=== PATIENT | male | born 1980 | race Caucasian/White ===

== ENCOUNTER 2024-08-11 14:13 | Outpatient (AMB) | payer OTHER, SELFPAY ==
--- NOTE | 2024-08-11 14:13 | MHC.PC.OV ---
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[employer] Furnace Required: No Accompanied by: Self / Same As Patient Allergies No Known Allergies Allergy (Verified 08/11/24 14:34) Medication List - Last Reconciled 08/11/24 by Elizabet Núñez PA-C No Known Home Meds Tobacco use date assessed: 08/11/24 Dental Screening Dental Screen Date: 08/11/24 Did you have a dental visit in the last 12 months?: Yes Did you have a dental problem in the last 6 months where you did not have access to dental care?: No Was dental information given to patient?: Patient has dentist HPI Establish Care HPI Details The patient is a 44-year-old male presenting to establish a new primary care provider along with right foot pain. The foot pain started after sustaining a cut on May 30, which was treated with glue in the ER. By May 31, the patient experienced significant discomfort and sought urgent care by June 04. The urgent care team conducted an x-ray which showed no fractures, but inflammation was noted. The discomfort has decreased but still persists when taking steps. Dietary factors potentially exacerbating gout were reported, including consumption of rich foods over the weekend. During the visit, a basic wellness evaluation was conducted. The patient denies a significant personal or family history of gout, diabetes, hypertension, or cancer. He reports social alcohol consumption and has not used tobacco or drugs. The patient does not regularly take medications except for occasional Tylenol. 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 - Housing: Lives alone in a house. - Family Status: Single, no children. - Substance Use: Denies tobacco use; alcohol consumption is approximately 10 drinks per month; denies illicit drug use. - Nutrition: Reports occasional consumption of rich foods. - Regular Health Exams: Dental exams occur at least annually; eye exams are less frequent, with plans to schedule in near future. 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 1. Little interest or pleasure in doing things: not at all 2. Feeling down, depressed, or hopeless: not at all 3. Trouble falling or staying asleep, or sleeping too much: not at all 4. Feeling tired or having little energy: not at all 5. Poor appetite or overeating: not at all 6. Feeling bad about yourself - or that you are a failure or have let yourself or your family down: not at all 7. Trouble concentrating on things, such as reading the newspaper or watching television: not at all 8. Moving or speaking so slowly that other people could have noticed. Or the opposite - being so fidgety or restless that you have been moving around a lot more than usual: not at all 9. Thoughts that you would be better off or of hurting yourself in some way: not at all Total score: 0 Depression Screening Interpretation: Negative Depression Screening Done: Yes 18034 - PHQ-9 Billing: Yes Source: Developed by Drs. Inocente Gale, Glenis Kelly, Cole Bearden and colleagues, with an educational tj from [employer]. Thrive Questionnaire Date Thrive assessed: 08/11/24 I am a: Patient What is your living situation today?: I have a steady place to live Within the past 12 months, did the food you bought not last and you didn't have the money to get more?: Never true Within the past 12 months, did you worry whether your food would run out before you got money to buy more?: Never true Do you have trouble paying for medicines?: No Do you have trouble getting transportation to medical appointments?: No Do you have trouble paying your heating and electricity bill?: No Do you have trouble taking care of your child, family member or friend?: No Do you have trouble with day-to-day activities such as bathing, preparing meals, shopping, managing finances, etc.?: No Are you currently unemployed and looking for a job?: No Are you interested in more education?: No Please select the resources that you would like help with: None THRIVE Score: 0 AUDIT C Alcohol Use Questionnaire (AUDIT-C) 1. How often do you have a drink containing alcohol?: 2-4 times a month 2. How many drinks containing alcohol do you have on a typical day when you are drinking?: 1 or 2 3. How often do you have six or more drinks on one occasion?: Never Total Score: 2 Score Reviewed/Action Taken: No JEWEL-7 AMB Questionnaire JEWEL-7 Date JEWEL - 7 assessed: 08/11/24 Feeling nervous, anxious, or on edge: 0 = Not at all Not being able to stop or control worryin = Not at all Worrying too much about different things: 0 = Not at all Trouble relaxin = Not at all Being so restless that it is hard to sit still: 0 = Not at all Becoming easily annoyed or irritable: 0 = Not at all Feeling afraid as if something awful might happen: 0 = Not at all Total JEWEL-7 score (0-4 normal; 5-9 mild; 10-14 moderate; 15-21 severe): 0 Source: Developed by Drs. Inocente Gale, Glenis Kelly, Cole Bearden and colleagues, with an educational tj from [employer]. JEWEL-7 Assessment Billing JEWEL-7 Assessment Tool: JEWEL-7 Assessment 29589 Review of Systems Const Details: - General: Denies fevers or chills. - Musculoskeletal: Reports right foot pain with reduced swelling. - Gastrointestinal: Denies significant symptoms. - Respiratory: Denies respiratory symptoms. - Endocrine: No known thyroid dysfunction. - Neurological: Denies headaches or neurological symptoms. Physical exam (Primary Care) Vital Signs: Last Vital Signs Temp 97.7 F 08/11/24 14:18 Pulse 82 08/11/24 14:18 Resp 14 08/11/24 14:18 BP 140/70 H 08/11/24 14:18 Pulse Ox 97 08/11/24 14:18 Oxygen Delivery Method Room Air 08/11/24 14:18 Care Plan Goal for BP management: <140/90 at Goal BMI result Body Mass Index 34.1 BMI Assessment/Plan discussion: High BMI High, discussed plan: lifestyle, weight reduction, dietary, physical activity and alcohol moderation Tobacco/Smoking Status: Tobacco use Status Tobacco use date assessed 08/11/24 08/11/24 14:15 Patient Tobacco Use Status Never used Tobacco 08/11/24 14:23 PHQ-9: PHQ-9 Score PHQ-9: Total score 0 08/11/24 14:34 Depression Screening Interpretation: Negative Thrive Assessment: Date of Thrive Assessment Date Thrive assessed 08/11/24 08/11/24 14:15 Const Other: Appearance: Alert. Oriented X3. No acute distress. Head: Normal external exam. Normocephalic. Atraumatic. Eyes: Pupils are equal, round, and reactive to light. Extraocular movements intact. Conjunctiva and sclera normal. Eyelids normal. Ears: External auditory canal normal. Tympanic membranes normal. Throat: Pharynx normal. Uvula midline. Moist mucous membranes. Neck: Normal inspection. Neck supple. Full range of motion. No adenopathy. Thyroid Normal. No meningeal signs. No neck mass noted. Cardiovascular: Normal heart rate and rhythm. Heart sound normal. No murmurs noted. Pulses normal throughout. Respiratory: No respiratory distress. Painless inspiration. Breath sounds normal. No wheezes/rales/rhonchi noted. Chest nontender. No accessory muscle usage noted or decreased air movement noted. Abdomen: Soft and nontender. Bowel sounds normal in all 4 quadrants. No distention noted. No organomegaly noted. No visible injury noted. Back: No costovertebral angle tenderness. Full range of motion noted. Skin: Skin warm and dry. Normal skin color. Normal skin turgor. No rashes/lesions/lacerations noted. Extremities: Right foot shows redness and discoloration with a bruise. There is a history of pain and swelling, but currently, there is a lot less swelling than before. No fractures noted on x-ray. Signs of inflammation present. Concerned for gout. Not consistent with cellulitis. Otherwise all other extremities exhibit normal range of motion nontender. There is no lower extremity edema or calf tenderness noted. Neuro: Oriented X 3. No motor deficit. No sensory deficit. Reflexes normal. Results AMB Hemoglobin A1c AMB Hemoglobin A1c 5.1 % Last Edit by TANJA Cintron on 08/11/24 15:01 Results Reviewed Results Reviewed: - Tests: X-ray of the right foot from urgent care showed no fractures. - Labs: Elevated uric acid level pending. Coding Level of Care Code New Pt Level 4 (31821) Complex EM visit Add On G2211 Diagnoses Establishing care with new doctor, encounter for Z76.89 Class 1 obesity with body mass index (BMI) of 34.0 to 34.9 in adult E66.811; Z68.34 Foot swelling M79.89 Colon cancer screening Z12.11 Additional Codes PHQ-9 - 40118 - PHQ-9 Billing: Yes ([id number]) JEWEL-7 Assessment Billing - JEWEL-7 Assessment Tool: JEWEL-7 Assessment 12535 ([id number]) Assessment & Plan Assessment & Plan (1) Establishing care with new doctor, encounter for: Code(s): Z76.89 - Persons encountering health services in other specified circumstances Category: Medical (2) Class 1 obesity with body mass index (BMI) of 34.0 to 34.9 in adult: Code(s): E66.811 - Obesity, class 1; Z68.34 - Body mass index [BMI] 34.0-34.9, adult Category: Medical Plan: Patient to improve diet and exercise regimen. Condition is chronic and stable continue to monitor. (3) Foot swelling: Code(s): M79.89 - Other specified soft tissue disorders Category: Medical Plan: Foot pain is likely associated with inflammation. Managed initially with prednisone to reduce symptoms. Monitoring and follow-up are advised to evaluate progress. (4) Colon cancer screening: Code(s): Z12.11 - Encounter for screening for malignant neoplasm of colon Category: Medical Plan: Will refer to GI for colon cancer screening. Patient denies any GI related complaints or family history of colon cancer or any other related cancers that he is aware of. Plan Plan Patient was informed and verbally consented to the use of an ambient scribe for clinic note documentation during this visit. 1. Foot Pain Foot pain is likely associated with inflammation. Managed initially with prednisone to reduce symptoms. Monitoring and follow-up are advised to evaluate progress. 2. Hyperuricemia Suspected Potential Gout Uric acid levels suggest a possible gout flare. A test has been ordered to confirm. Patient counseling focused on dietary modifications and monitoring for symptom changes. I discussed with the patient the possible diagnosis of gout given the acute foot pain, inflammation, and dietary history. The treatment options include initiating prednisone to manage inflammation immediately while awaiting uric acid test results. The potential risk of exacerbating diabetes was addressed, but current labs do not indicate diabetes. The importance of following dietary guidelines and avoiding high-purine foods, alcohol, and sugar for long-term management was emphasized. The possible need for rheumatology consultation was considered if gout diagnosis is confirmed. I also instructed the patient to watch for signs of worsening symptoms and report back any concerning developments. Follow-up planning includes returning in six months for re-evaluation unless laboratory results suggest earlier review. The patient was informed about the process for colonoscopy scheduling following the referral to Gastroenterology in line with preventative care for age-appropriate cancer screenings. Orders: Orders C Reactive Protein Today Z00.00 - Encounter for general adult medical examination without abnormal findings PSA,Total (Free>4and<10) Today Z00.00 - Encounter for general adult medical examination without abnormal findings TSH reflex Free T4 Today Z00.00 - Encounter for general adult medical examination without abnormal findings Lipid Panel Today Z00.00 - Encounter for general adult medical examination without abnormal findings Liver Panel Today Z00.00 - Encounter for general adult medical examination without abnormal findings AMB Hemoglobin A1c Today Z13.9 - Encounter for screening, unspecified Complete Blood Count Auto Diff Today Z00.00 - Encounter for general adult medical examination without abnormal findings Comprehensive [place]. Panel Fast Today Z00.00 - Encounter for general adult medical examination without abnormal findings Vitamin B12 and Folate Today Z00.00 - Encounter for general adult medical examination without abnormal findings Vitamin D 25-OH Total Today Z00.00 - Encounter for general adult medical examination without abnormal findings Magnesium Today Z00.00 - Encounter for general adult medical examination without abnormal findings Uric Acid Today M79.89 - Other specified soft tissue disorders, Z76.89 - Persons encountering health services in other specified circumstances Referrals Gastroenterology Referral Z12.11 - Encounter for screening for malignant neoplasm of colon Medications: New prednisone 40 mg (2 x 20 mg) PO DAILY 5 days 10 tabs 0RF Patient Instructions: - Monitor foot for increased redness or swelling and notify immediately if it worsens. - Start prescribed prednisone for foot pain if necessary. - Avoid alcohol and rich foods. - Get blood work done, including fasting samples if advised. - Attend the colonoscopy appointment once contacted by Gastroenterology. - Follow up in six months for routine wellness check-up. - Return sooner if new symptoms appear or conditions worsen.
[2024-08-11 14:18] VITALS: BP 128/78; PULSE 82; RESP 14; TEMP 36.5; O2SAT 97; BMI 34.1
== END 2024-08-11 15:01 | disposition home or self-care (01) ==
LOC: HO.HMCSH 14:13
PROVIDERS: PCP Internal Medicine; Visit Provider Physician Assistant Medical
DX: Z76.89 Persons encountering health services in other specified circumstances (principal); E66.811 Obesity, class 1; Z68.34 Body mass index [BMI] 34.0-34.9, adult; M79.89 Other specified soft tissue disorders; Z12.11 Encounter for screening for malignant neoplasm of colon; Z13.9 Encounter for screening, unspecified

== ENCOUNTER → 2024-08-11 14:13 | Outpatient (BNVA) | payer OTHER, SELFPAY | PROVIDERS: PCP Internal Medicine; Visit Provider Physician Assistant Medical | DX: E66.811 Obesity, class 1 (principal); M79.89 Other specified soft tissue disorders; M79.673 Pain in unspecified foot; Z68.34 Body mass index [BMI] 34.0-34.9, adult; Z76.89 Persons encountering health services in other specified circumstances | CPT/HCPCS: 83036; 96127 ==

== ENCOUNTER 2024-08-14 10:10 | Outpatient (REF) | payer OTHER, SELFPAY ==
[2024-08-14 10:20] LABS: MANUAL DIFF FLAG NO
[2024-08-14 10:45] LABS: Basophils Percent Auto 0.2 % (0-2); Eosinophils Percent Auto 0.1 % (0-4); Hematocrit 47.2 % (42.0-52.0); Hemoglobin 16.9 g/dl (14.0-18.0); Imm Gran Abs Auto 0.05 X10*3/uL (0.00-0.03); Imm Gran Pct Auto 0.4 % (0.0-0.4); Lymphocytes Absolute Auto 1.9 X10*3/uL (1.2-4.9); Lymphocytes Percent Auto 14.2 % (20-40); Mean Corpuscular HGB Conc 35.8 g/dl (31.0-36.0); Mean Corpuscular Hemoglobin 32.3 pg (27.0-33.0); Mean Corpuscular Volume 90.1 fL (80.0-98.0); Mean Platelet Volume 10.8 fL (9.4-12.4); Monocytes Absolute Auto 0.9 X10*3/uL (0.1-1.2); Monocytes Percent Auto 6.3 % (2-11); Neutrophils Absolute Auto 10.6 x10*3/uL (2.0-8.3); Neutrophils Percent Auto 78.8 % (45-73); Platelet Count 357 X10*3/uL (160-400); Red Blood Count 5.24 X10*6/uL (4.60-5.80); Red Cell Distribution Width 12.1 % (11.0-16.0); White Blood Count 13.4 X10*3/uL (4.8-10.8)
[2024-08-14 11:16] LABS: Albumin Level 4.6 g/dL (3.5-5.0); Alkaline Phosphatase 73 U/L (39-117); Anion Gap 11 (12-20); Aspartate Amino Transferase 22 U/L (5-37); Bilirubin Direct 0.2 mg/dL (0.0-0.5); Bilirubin Total 0.6 mg/dL (0.0-1.0); Blood Urea Nitrogen 15 mg/dL (9-16); C Reactive Protein 0.68 mg/dL (< or = 0.50); Calcium 9.5 mg/dL (8.4-10.2); Carbon Dioxide 25 mmol/L (22-29); Chloride 110 mmol/L (96-108); Cholesterol 256 mg/dL (<200); Estimated Glomerular Filt Rate > 60; Glucose Fasting 113 mg/dL (60-99); HDL Cholesterol 48 mg/dL (>40); LDL Cholesterol Calculated 187 mg/dL (<100); Magnesium 2.2 mg/dL (1.6-2.6); Sodium 142 mmol/L (135-145); Total Protein 7.5 g/dL (6.5-8.0); Triglycerides 105 mg/dL (<150); Uric Acid 6.9 mg/dL (3.4-7.0)
[2024-08-14 11:20] LABS: Alanine Aminotransferase 39 U/L (0-40)
[2024-08-14 11:29] LABS: PSA,Total (Free>4and<10) 0.37 ng/mL (0.00-4.00)
[2024-08-14 11:33] LABS: TSH reflex Free T4 1.42 uIU/mL (0.32-4.0); Vitamin D 25-OH Total 18.8 ng/mL (>30)
[2024-08-14 11:44] LABS: Folate 8.8 ng/mL (> or = 4.0); Vitamin B12 528 pg/mL (200-900)
== END 2024-08-14 10:11 | disposition home or self-care (01) ==
LOC: HO.LAB 10:10
PROVIDERS: PCP Physician Assistant Medical; Visit Provider Physician Assistant Medical
DX: Z00.00 Encounter for general adult medical examination without abnormal findings (principal); Z12.5 Encounter for screening for malignant neoplasm of prostate; Z13.6 Encounter for screening for cardiovascular disorders; M79.89 Other specified soft tissue disorders; Z76.89 Persons encountering health services in other specified circumstances
CPT/HCPCS: 36415; 80053; 80061; 80076; 82248; 82306; 82607; 82746; 83735; 84153; 84443; 84550; 85025; 86140

== ENCOUNTER 2024-08-24 13:53 | Outpatient (AMB) | payer OTHER, SELFPAY ==
[2024-08-24 13:58] VITALS: BP 126/70; PULSE 79; O2SAT 97; BMI 32.4
--- NOTE | 2024-08-24 13:58 | A.OFFVIS_ITS ---
Vital Signs 08/24/24 13:58 Height 5 ft 10.47 in Weight 229 lb 0.964 oz BMI 32.4 BP 126/70 Blood Pressure Location Lt brachial Position Sitting Pulse 79 Pulse Source Pulse Oximeter Pulse Oximetry (%) 97 Oxygen Delivery Method Room Air Intake Visit Reasons: Gout/ per relottie early appt Intake Note: Patient is a new patient internally referred by GERALDO Rudolph for gout. So ent states he has had right foot pain since the beginning of August, patient not taking anything now. Allergies No Known Allergies Allergy (Verified 08/24/24 14:00) Medication List - Last Reconciled 08/24/24 by Edwige Newby MD cholecalciferol (vitamin D3) 50 mcg PO DAILY rosuvastatin (Crestor) 10 mg PO DAILY HPI Comments Details: Patient is a 44 y.o. male with HLD presents today for evaluation of suspected gout. Patient noted sudden onset of right foot pain 07/31/24. No antecedent penetrating or blunt trauma. The pain started at the lateral aspect of the midfoot. Denies 1st MTP involvement. Followed up at [facility] urgent care the following day since the pain persisted. XRs were normal and no medication was offered. The pain persisted at home, which patient took Tylenol and Ibuprofen. This would help a bit but the pain would persist. Followed up with primary who suspected gout and started patient on prednisone 40mg x 5 days. He is not sure if the prednisone helped because the pain came back but he thinks it did. Risk Factors for Gout Obesity Denies: HTN, Family history of gout, CKD, EtOH use and use of medications: low- dose ASA, diuretics, cyclosporine [facility] Medical History (Updated 08/24/24 @ 14:44 by Edwige Newby MD) Hypercholesteremia Hyperlipidemia LDL goal <100 Class 1 obesity with body mass index (BMI) of 34.0 to 34.9 in adult Colon cancer screening Establishing care with new doctor, encounter for Foot swelling Family History Father Eye problem Mother Eye problem Social History Housing: House Alcohol intake: current Alcohol intake frequency: a few times a month Patient Tobacco Use Status: Never used Tobacco service: No Current occupational status: employed 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 Cognitive needs: No Hearing needs: No Vision needs: Yes (rx glasses) Review of Systems Const Details: Review of Systems Constitutional: Denies fever, chills, weight loss ENT: Denies vision changes, eye pain or eye redness, dental caries, dry mouth GI: Denies nausea, vomiting, diarrhea, abdominal pain, change in BM Pulm: Denies SOB, NG, hemoptysis, wheezing Cards: Denies chest pain, palpitations Skin: Denies Raynaud's, rash, nail changes, photosensitivity, REEL REPAIRER: Denies headaches, weakness, paresthesias, recurrent falls MSK: as per HPI All other systems reviewed and are unremarkable except noted above Physical Exam Vital Signs: Last Vital Signs Pulse 79 08/24/24 13:58 BP 126/70 08/24/24 13:58 Pulse Ox 97 08/24/24 13:58 Oxygen Delivery Method Room Air 08/24/24 13:58 BMI result Body Mass Index 32.4 Vital signs reviewed Physical Examination CONSTITUITIONAL Patient alert and cooperative. Well appearing and in no apparent painful distress HEENT Conjunctiva and sclera clear. No lymphadenopathy. MSK Hands * Right Hand: Able to make a fist. No swelling or tenderness to palpation of these joints. No deformities noted. Erythema and fluctuant collection noted to the tip of the ring finger * Left Hand: Able to make a fist. No swelling or tenderness to palpation of these joints. No deformities noted. Wrists * Right Wrist: Full ROM. 70 degrees of wrist flexion, 80 degrees of wrist extension. No swelling or TTP * Left Wrist: Full ROM. 70 degrees of wrist flexion, 80 degrees of wrist extension. No swelling or TTP Elbows * Right Elbow: Full ROM. No swelling or TTP. No TTP of the medial and lateral epicondyles * Left Elbow: Full ROM. No swelling or TTP. No TTP of the medial and lateral epicondyles Shoulders * Right shoulder: Full ROM. No swelling noted. No TTP of the AC joint, subacromial bursa or posterior shoulder * Left shoulder: Full ROM. No swelling noted. No TTP of the AC joint, subacromial bursa or posterior shoulder Knees * Right knee: Full ROM. No swelling noted. No TTP of the knee joint lie or pes anserine bursa * Left knee: Full ROM. No swelling noted. No TTP of the knee joint lie or pes anserine bursa. Ankles * Right ankle: Good ankle dorsiflexion and plantar flexion. No TTP of the MTPs 1st-5th. No TTP of the ankle joint proper. Swelling noted over dorsum of foot. TTP of the base on the 5th MTP. * Left ankle: Good ankle dorsiflexion and plantar flexion. No swelling. No TTP of the ankle joint Feet * Right foot: Negative squeeze test * Left foot: Negative squeeze test Tender points? * No tenderness to palpation of the bilateral trapezius, supraspinatus, anterior costochondral junctions, bilateral suboccipital muscle insertions SKIN No rashes. No tophi Results Reviewed Results Reviewed: Laboratory Tests 08/14/24 10:19 WBC 13.4 H RBC 5.24 Hgb 16.9 Hct 47.2 Plt Count 357 Sodium 142 Potassium 4.0 Chloride 110 H Carbon Dioxide 25 BUN 15 Creatinine 0.83 Uric Acid 6.9 Calcium 9.5 Magnesium 2.2 Total Bilirubin 0.6 Direct Bilirubin 0.2 AST 22 ALT 39 Alkaline Phosphatase 73 C-Reactive Protein 0.68 H Assessment & Plan Assessment & Plan (1) Right foot pain: Code(s): M79.671 - Pain in right foot Plan: #Right foot pain Patient is a 44-year-old male with hyperlipidemia here today for evaluation of right foot pain. It is unusual for gout to not involve the 1st MTP joint. Furthermore his pain seems to be at the base of the 5th MTP. He also did not respond well to a course of prednisone. The natural history of gout is to resolve with in 2 weeks especially the 1st instance. At this time given his atypical presentation and normal uric acid I am not sure he truly has a diagnosis of gout. We will check a CT of his foot to evaluate further. Plan - CT right foot - RTC after results (2) Acute paronychia of finger of right hand: Code(s): L03.011 - Cellulitis of right finger Plan: #Acute paronychia of right ring finger Patient with erythema and fluctuant swelling to his right ring finger. Informed him that it looks infected and he should have it drained. Plan I spent 35 minutes reviewing the record and labs, taking a history, examining the patient, discussing the treatment plan, ordering diagnostic work up and docu menting in the medical record Orders: Orders CT foot RT wo IV con Today M79.671 - Pain in right foot Coding Level of Care Code New Pt Level 3 (23479) Diagnoses Right foot pain M79.671 Acute paronychia of finger of right hand L03.011
== END 2024-08-24 14:36 | disposition home or self-care (01) ==
LOC: HO.RHE 13:53
PROVIDERS: PCP Physician Assistant Medical; Visit Provider Student in an Organized Health Care Education/Training Program
DX: M79.671 Pain in right foot (principal); L03.011 Cellulitis of right finger
CPT/HCPCS: 99203

== ENCOUNTER 2024-10-29 12:23 | Outpatient (AMB) | payer OTHER, SELFPAY ==
--- NOTE | 2024-10-29 12:25 | MHC.OFFVIS ---
Vital Signs 10/29/24 12:26 Height 5 ft 10 in Weight 242 lb BMI 34.7 BP 154/86 H Blood Pressure Location Lt brachial Position Sitting Pulse 84 Pulse Source Pulse Oximeter Pulse Oximetry (%) 96 Oxygen Delivery Method Room Air Intake Visit Reasons: Colonoscopy Screening Intake Note: Patient new consult for Colonoscopy Screening. Patient cc: Pt denies any GI sx or concerns at this time. Pt denies any pertinent FMHx. Extension Service Supervisor Required: No Accompanied by: Self / Same As Patient Allergies No Known Allergies Allergy (Verified 08/24/24 14:00) Medication List - Last Reconciled 10/29/24 by Tanya Jensen CNP cholecalciferol (vitamin D3) 50 mcg PO DAILY flaxseed oil 1,000 mg PO DAILY multivitamin 1 tab PO DAILY rosuvastatin (Crestor) 10 mg PO DAILY HPI HPI Colonoscopy Screening: Details: Patient is a 44-year-old male with PMH of obesity and hyperlipidemia. Referred by PCP for pre colonoscopy screening. This will be his first screening for colorectal cancer. Reports daily stools, sometimes twice per day, with occasional loose stools associated with high caffeine intake. They deny constipation, abdominal pain, nausea, vomiting, or appetite changes. The patient notices occasional streaks of red blood upon wiping but denies seeing blood in the stool. Reports a prior history of hemorrhoids or anal fissures. Heartburn occurs occasionally, typically triggered by specific foods like pepperoni pizza or acidic juices, and was previously managed with [id number] antacids, which are rarely needed now. Mild regurgitation was noted rarely, and trouble swallowing occurs occasionally when food is inadequately chewed, but not with routine eating or drinking. Weight gain (+13 lbs) since August 2024 was discussed; the patient attributes this to changes in diet and recent vacation but denies intentional dieting or unexplained weight loss. The patient?s blood pressure during the visit was elevated, but this was attributed to activity before the appointment, lack of food intake, and first-visit stress. He is aware of previously documented hypercholesterolemia and low vitamin D, which are being treated with Crestor and supplements, respectively. Social hx: -4-6 ETOH drinks/month -denies recreational drug use -non-smoker - family hx as below -denies personal hx of CA -denies significant cardiopulmonary history -tolerated anesthesia in the past without difficulty. 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 Cognitive needs: No Hearing needs: No Vision needs: Yes (rx glasses) Review of Systems Const Reports as per HPI ENT Reports as per HPI Card Reports as per HPI Resp Reports as per HPI GI Reports as per HPI Reports as per HPI Physical Exam Const General: healthy appearing, no acute distress and well developed Nutritional Appearance: average body habitus Orientation/consciousness: patient oriented x3 HEENT Head: Yes normal to inspection, Yes normocephalic and Yes atraumatic Face and sinus: Yes normal facial exam Eyes General: appearance normal, both eyes and all related structures Neck Neck: Yes normal visual inspection Resp Effort & Inspection: normal respiratory effort, able to speak in complete sentences, no tracheal deviation and symmetric chest movement Cardio Jugular venous distension: no JVD Neuro General: patient oriented x3 Gait exam (Neuro): Normal gait present Psych Appearance: grossly normal Mental Status: mental status grossly normal Speech and movement: Normal speech and movement present Affect: normal affect Attitude: cooperative Thought process: Normal thought process present Thought content: Normal thought content present Insight: Good insight present (Psych) Judgement: Good judgement present (Psych) Assessment & Plan Assessment & Plan (1) Colon cancer screening: Code(s): Z12.11 - Encounter for screening for malignant neoplasm of colon Category: Medical Plan: Age-appropriate screening; referred by PCP; no personal or family history of CRC; mild GI symptoms and weight gain warrant definitive evaluation. Discussed CRC screening options?FIT (annual), Cologuard (q3y if negative), and colonoscopy (gold standard for detection and prevention). Patient educated that colonoscopy allows for direct visualization and polyp removal, providing the most definitive assessment. Patient opted for colonoscopy. Additional Testing: Colonoscopy ordered as primary screening modality. Medications: -prescriptions for laxative tablets and MiraLax sent to pharmacy; instructions for Gatorade purchase and clear liquid diet given. Patient educated on scheduling process, procedure preparation, including avoiding certain foods and ensuring clear liquid intake Advised on necessity for ride post-procedure due to sedation. Follow-Up: Results to be communicated by letter unless in-person follow-up indicated post-procedure. (2) Hemorrhoid: Code(s): K64.9 - Unspecified hemorrhoids Category: Medical Qualifiers: Hemorrhoid type: unspecified Qualified Code(s): K64.9 - Unspecified hemorrhoids Plan: Suspected. Reports occasional red streaks on toilet paper, no visible blood in stool, possible history of hemorrhoids or fissures. Additional Testing: No further workup indicated at this time; to reassess if symptoms worsen or if remi rectal bleeding develops. Lifestyle Recommendations: Maintain adequate hydration, avoid straining, consider increased dietary fiber if symptoms recur. Follow-Up: Instructed to report increased rectal bleeding, pain, or persistent symptoms prior to or after colonoscopy. Plan Follow-up colonoscopy as warranted or sooner if needed Time: I spent a total of 30 minutes on the date of encounter which includes: Preparing to see the patient (reviewed previous documentation, test results and medical history) Performing a medically appropriate exam and/or evaluation Ordering medications, tests, and procedures Documenting clinical information in the health record Medications: New bisacodyl (Dulcolax (bisacodyl)) Take four tablets pre colonoscopy instructions 20 mg (4 x 5 mg) PO ONCE 4 tabs 0RF 1 day polyethylene glycol 3350 (Miralax) per colonoscopy prep instructions 238 grams PO ONCE 238 grams 0RF Coding Level of Care Code New Pt New Pt Level 3 (33197) Patient Type New Diagnoses Colon cancer screening Z12.11 Hemorrhoids, unspecified hemorrhoid type K64.9 Hemorrhoid type: unspecified
[2024-10-29 12:26] VITALS: BP 154/86; PULSE 84; O2SAT 96; BMI 34.7
== END 2024-10-29 12:51 | disposition home or self-care (01) ==
LOC: HO.HGI 12:23
PROVIDERS: PCP Physician Assistant Medical; Visit Provider Nurse Practitioner Family
DX: Z01.818 Encounter for other preprocedural examination (principal); Z12.11 Encounter for screening for malignant neoplasm of colon; K64.9 Unspecified hemorrhoids
CPT/HCPCS: 99203

== ENCOUNTER 2024-11-16 16:18 | Outpatient (REF) | payer OTHER, SELFPAY ==
--- NOTE | ~2024-11-16 | CT_ITS ---
EXAMINATION: CT FOOT WITHOUT CONTRAST, RIGHT CLINICAL INFORMATION: M79.671 - Pain in right foot COMPARISON: None available. TECHNIQUE: Axial CT was performed through the right foot without contrast. Coronal and sagittal reformatted images were generated from the original axial data set. ALARA: The examination used one or more of the following radiation dose reduction techniques: Automated exposure control, iterative reconstruction, and/or adjustment of mA and/or KV. DLP: 166 mGY*cm FINDINGS: Lisfranc ligament: Lisfranc ligament appears intact. Soft tissues/Muniz's Neuroma: No atrophy or fatty streaking is noted in the foot musculature. No superficial soft tissue edema is noted. There is mildly prominent soft tissue in the second webspace. Syndesmotic ligaments are intact. Talofibular and calcaneofibular ligaments appear intact. Peroneal, medial, and anterior ankle tendons appear intact. Metatarsophalangeal (MTP) joint and sesamoids of the great toe: Lateral plate complex is grossly intact. No degenerative changes are evident. Lesser MTP joints & Plantar plates: Plantar plates are grossly intact. No degenerative changes are evident. Bones: Three small rounded areas of high attenuation are present in the midfoot, navicular and calcaneal, consistent with benign bone islands. No other bony abnormalities are seen. 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 Electronically signed by: Jacques Torres MD 11/16/2024 05:24 PM EDT
--- OUTSIDE RECORDS SUMMARY | 2024-11-16 18:12 | XMS_ITS | Clinical Summary ---
Author Organization [facility] Address [address] [place] [address] Phone Care Team Providers Care Director Global Medical Affairs Name Role Phone Elmo Huggins MD Primary Care Provid er Allergies No known active allergies Medications No known medications Active Problems No known active problems Social History Tobacco Use Types Packs/Day Years Used Date Smoking Tobacco: Never Assessed Education Answer Date Recorded Are you interested in more education? Not on rivas e 07/31/2024 Are you concerned about learning? Not on file 07/31/2024 No 07/31/2024 No 07/31/2024 Digital Access Answer Date Recorded No 07/31/2024 No 07/31/2024 Reliable internet access at home? Not on file 07/31/2024 Device with a working camera? Not on file Intimate Partner Violence Answer Date R ecorded Are you denied basic needs s uch as food, clothing, or medical care? No 07/30/2024 In the past 12 months have y ou been in a relationship with a person who hurts, threatens, or tries to control you? No 07/30/2024 Are you denied basic needs s uch as food, clothing, or medical care? No 07/30/2024 In the past 12 months have y ou been in a relationship with a person who hurts, threatens, or tries to control you? No 07/30/2024 Sex and Gender Information Value Date Recorded Sex Assigned at Male 08/03/2024 12:52 PM EDT Legal Sex Male 5:54 PM EST Gender Identity Genderqueer/Queer 08/03/2024 12: 52 PM EDT Sexual Orientation Pansexual 08/03/2024 12 :52 PM EDT Last Filed Vital Signs Vital Sign Reading Time Taken Comments Blood Pressure 133/86 08/03/2024 1:05 PM EDT Pulse 77 08/03/2024 1:05 PM EDT Temperature 36.5 C (97.7 F) 08/03/2024 1:05 PM EDT Respiratory Rate 16 08/03/2024 1:05 PM EDT Oxygen Saturation 97% 08/03/2024 1:05 PM EDT Inhaled Oxygen Concentration - - Weight 110.2 kg (243 lb) 08/03/2024 1:05 PM EDT Height 177.8 cm (5' 10 ) 08/03/2024 1:05 PM EDT Body Mass Index 34.87 08/03/2024 1:05 PM EDT Plan of Treatment Health Maintenance Due Date Last Done Comments Adult Td,Tdap Booster 1978 LIPID PANEL 1978 DEPRESSION SCREENING 1990 SMOKING Hx and SMOKELESS TOB ACCO SCREENING 1991 HEPATITIS C SCREENING 01/31/1996 HIV ONE-TIME SCREENING (18-6 5 YEARS) 01/31/1996 SCREENING FOR DIABETES 2013 COLOGUARD 2023 COLONOSCOPY 2023 COLORECTAL CANCER SCREENING 2023 FIT TEST 2023 FOBT 2023 SIGMOIDOSCOPY 2023 VIRTUAL COLONOSCOPY 2023 COVID-19 VACCINE ( - 2023-2 5 season) 2023 HEPATITIS A VACCINES Aged Out No long er eligible based on patient's age to complete this topic HIB VACCINES Aged Out No longer eligi ble based on patient's age to complete this topic MENINGOCOCCAL VACCINES (ACWY) Aged Out No longer eligible based on patient's age to complete this topic MENINGOCOCCAL VACCINES (B) Aged Out N o longer eligible based on patient's age to complete this topic PNEUMOCOCCAL VACCINES (0-49 years) Aged Out No longer eligible based on patient's age to complete this topic Medical Devices Not on file Insurance [facility] EPO [facility] POS EPO [facility] POS EPO [facility] [place] [address] [place] [address] POS EPO [facility] EPO Care Teams Director Global Medical Affairs Relationship Specialty Start Date End Date Elmo Huggins MD [address] [place] [id number] PCP - General Internal Medicine 07/31/24 Additional Source Comments The information contained in this document represents components of the legal health record. It is not the complete legal health record.[facility]
== END 2024-11-16 16:19 | disposition home or self-care (01) ==
LOC: HO.CT 16:18
PROVIDERS: PCP Physician Assistant Medical; Visit Provider Student in an Organized Health Care Education/Training Program
DX: M79.671 Pain in right foot (principal)
CPT/HCPCS: 73700

== ENCOUNTER → 2024-11-16 16:21 | Outpatient (BNV) | payer OTHER, SELFPAY | PROVIDERS: PCP Physician Assistant Medical; Visit Provider Radiology Diagnostic Radiology | DX: M79.671 Pain in right foot (principal) | CPT/HCPCS: 73700 ==

== ENCOUNTER 2024-12-10 08:03 | Outpatient (AMB) | payer OTHER, SELFPAY ==
--- NOTE | 2024-12-10 08:08 | A.OFFVIS_ITS ---
Intake Visit Reasons: New Patient - Right Foot Pain/Mortons Neuroma Intake Note: Gabe is a 44 year old male who presents today as a new patient for an evaluation of his Muniz neuroma of the right foot. Patient reports that he has had pain of the lateral and midfoot of the right foot ongoing since the beginni ng of August. This pain onset suddenly with no injury/trauma. Has tried taking Tylenol and Ibuprofen with only temporary relief, he was also placed on a 5 day course of prednisone which he believes was helpful, but once he stopped taking it his pain returned. Uric acid was checked to rule out gout, which was normal. Today he reports that he is having more prominent Left foot pain. He explains that he has previously lsipped and fell on ice about 2 years ago. He assumed that he fractured the foot but never saught out treatment The pain is felt on the lateral aspect of the foot. Denied numbness and tingling. IMPRESSION: Right foot CT Scan Mildly prominent soft tissue is present in the second web space possibly representing a small Muniz's neuroma of uncertain significance. Allergies No Known Allergies Allergy (Verified 12/10/24 08:15) HPI Comments Details: The patient is a 44-year-old male with a PMH as seen below presenting with bilateral foot pain, initially in the right foot and now affecting the left foot. The right foot pain began in August, described as intense with no direct trauma to the foot was reported. The pain was described as internal, between the bones, resembling a severe cramp, without numbness or tingling. He states at this time he experiences 0/10 pain on the right and 3/10 pain on the left. Patient states the pain on the right is located in the dorsal aspect of the foot in between the 4th and 5th metatarsals. The pain on the left foot is located on the plantar lateral aspect of the foot. A CT scan revealed a neuroma in the right foot. The patient has been managing the pain with ibuprofen and acetaminophen, with some relief noted from Tylenol and a tight bandage applied after an x-ray at [facility]. The left foot pain is located in the lateral aspect of the arch, more towards the sole. He denies any other pedal concerns. 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 Plantar fasciitis of left foot Bilateral foot pain Metatarsalgia, right foot Hemorrhoid Hypercholesteremia Hyperlipidemia LDL goal <100 Class 1 obesity with body mass index (BMI) of 34.0 to 34.9 in adult Colon cancer screening Establishing care with new doctor, encounter for Foot swelling Family History Father Eye problem Mother Eye problem Social History Housing: House Alcohol intake: current Alcohol intake frequency: a few times a month Patient Tobacco Use Status: Never used Tobacco service: No Current occupational status: employed 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 Denies numbness or tingling in the toes and feet. All systems reviewed & are unremarkable except as noted in HPI and below Physical Exam Extrem Other: B/L LE Focused Physical Exam: Derm: No open lesions, abrasions, or wounds noted. Skin supple and turgor WNL. No ecchymosis or discoloration noted. No edema noted. No clinical signs of infection noted. No maceration noted. Vasc: DP/PT pulses palpable. CFT < 3 secs. Temperature gradient warm to warm. Pedal hair noted. No varicosities noted. Neuro: Protective sensations grossly intact. MSK: Right - No pain on palpation to the 4th webspace/dorsal or plantar aspects of the foot along the area of the 4th and 5th metatarsals. Negative squeeze test. Negative luis's sign. ROM of the forefoot, hindfoot, and ankle WNL. No crepitus noted. No palpable mass noted. No fluctuance noted. Normal arch height noted. Mild Hammertoes 2-5 noted. Left - Mild pain on palpation to the lateral aspect of the plantar arch. No pain on palpation to the calcaneus plantaraly or posteriorly. Negative windlass mechanism.Mild pain noted with dorsiflexion of the foot/ankle. No pain noted w ith remaining ROM. No crepitus noted. Normal arch height noted. Mild hammertoes 2-5 noted. Results Reviewed Results Reviewed: Podiatry read of CT scan of Right foot(11/16/24): [place] noted to the talus, calcaneus, and navicular. Small Neuroma noted to the 2nd interspace. No acute fractures or dislocations noted. CT scan of Right foot(11/16/24): FINDINGS: Lisfranc ligament: Lisfranc ligament appears intact. Soft tissues/Muniz's Neuroma: No atrophy or fatty streaking is noted in the foot musculature. No superficial soft tissue edema is noted. There is mildly prominent soft tissue in the second webspace. Syndesmotic ligaments are intact. Talofibular and calcaneofibular ligaments appear intact. Peroneal, medial, and anterior ankle tendons appear intact. Metatarsophalangeal (MTP) joint and sesamoids of the great toe: Lateral plate complex is grossly intact. No degenerative changes are evident. Lesser MTP joints & Plantar plates: Plantar plates are grossly intact. No degenerative changes are evident. Bones: Three small rounded areas of high attenuation are present in the midfoot, navicular and calcaneal, consistent with benign bone islands. No other bony abnormalities are seen. 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 I discussed with the patient the diagnosis of metatarsalgia and neuroma in the right foot and plantar fasciitis in the left foot. We reviewed the benefits of using ibuprofen as needed for inflammation/pain and the importance of metatarsal pads for neuroma relief. I emphasized the role of stretching exercises and proper footwear in managing plantar fasciitis. We also talked about the option of [id number] orthotics and the potential need for custom orthotics if symptoms persist. Follow-up was scheduled in three weeks to monitor progress and make necessary adjustments to the treatment plan. - Recommend continued use of ibuprofen for its anti-inflammatory effects to manage neuroma-related pain. - Advise use of metatarsal pads to alleviate pressure on the neuroma and improve comfort. - Encourage stretching exercises and proper footwear to manage plantar fasciitis and prevent recurrence. Provided patient with the instructional form. - Suggest trial of [id number] orthotics if pain persists, with consideration for custom orthotics if necessary. Follow-up in three weeks to assess progress and adjust treatment as needed. 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
== END 2024-12-10 08:37 | disposition home or self-care (01) ==
LOC: HO.HPODS 08:04
PROVIDERS: PCP Physician Assistant Medical; Visit Provider Student in an Organized Health Care Education/Training Program
DX: M77.41 Metatarsalgia, right foot (principal); M79.671 Pain in right foot; M79.672 Pain in left foot; M72.2 Plantar fascial fibromatosis; G57.61 Lesion of plantar nerve, right lower limb
CPT/HCPCS: 99204

== ENCOUNTER 2024-12-30 13:14 | Outpatient (AMB) | payer OTHER, SELFPAY ==
--- NOTE | 2024-12-30 13:22 | MHC.OFFVIS ---
Vital Signs 12/30/24 13:26 Height 5 ft 10 in Weight 242 lb BMI 34.7 Intake Visit Reasons: right foot neuroma and left foot plantar fasciitis Intake Note: Gabe is a 44 year old male who presents to the office today for a 3 week follow up for a right foot neuroma and left foot plantar fasciitis. At last visit pt was informed to use ibuprofen for pain relief and she was advised the use of metatarsal pads to alleviate pressure on the neuroma and improve comfort. Patient states he has not utilized the metatarsal pads and reported only taking ibuprofen once since his last visit. He no longer has pain in his right foot however his left foot plantar fasciitis pain persist occasionally. Allergies No Known Allergies Allergy (Verified 12/30/24 13:27) HPI Comments Details: The patient is a 44-year-old male presenting for a follow up due to left foot plantar fasciitis and right foot neuroma. The pain in the left foot is intermittent since the last visit with a severity reaching up to 4-5/10 at its worst. The patient reports that the pain is not consistently associated with any specific stressors or activities. Patient denies any pain to the right foot at this time. Interventions have included the use of ibuprofen on one occasion and he states he has been doing the stretching exercises intermittently. Patient states he did not use the metatarsal pads.He denies any new injuries. Denies any other pedal concerns. 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 Plantar fasciitis of left foot Bilateral foot pain Metatarsalgia, right foot Hemorrhoid Hypercholesteremia Hyperlipidemia LDL goal <100 Class 1 obesity with body mass index (BMI) of 34.0 to 34.9 in adult Colon cancer screening Establishing care with new doctor, encounter for Foot swelling Family History Father Eye problem Mother Eye problem Social History Housing: House Alcohol intake: current Alcohol intake frequency: a few times a month Patient Tobacco Use Status: Never used Tobacco service: No Current occupational status: employed 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 All systems reviewed & are unremarkable except as noted in HPI and below Physical Exam Vital Signs: BMI result Body Mass Index 34.7 Extrem Other: B/L LE Focused Physical Exam: Derm: No open lesions, abrasions, or wounds noted. Skin supple and turgor WNL. No ecchymosis or discoloration noted. No edema noted. No clinical signs of infection noted. No maceration noted. Vasc: DP/PT pulses palpable. CFT < 3 secs. Temperature gradient warm to warm. Pedal hair noted. No varicosities noted. Neuro: Protective sensations grossly intact. MSK: Right - No pain on palpation to the 4th webspace/dorsal or plantar aspects of the foot along the area of the 4th and 5th metatarsals. No pain to the forefoot. Negative squeeze test. Negative luis's sign. ROM of the forefoot, hindfoot, and ankle WNL. No crepitus noted. No palpable mass noted. No fluctuance noted. Normal arch height noted. Mild Hammertoes 2-5 noted. Left - Mild pain on palpation to the lateral aspect of the plantar arch. No pain on palpation to the calcaneus plantaraly or posteriorly. Negative windlass mechanism. Mild pain noted with dorsiflexion of the foot/ankle. No pain noted with remaining ROM. No crepitus noted. Normal arch height noted. Mild hammertoes 2-5 noted. Results Reviewed Results Reviewed: Podiatry read of CT scan of Right foot(11/16/24): Ossicles noted to the talus, calcaneus, and navicular. Small Neuroma noted to the 2nd interspace. No acute fractures or dislocations noted. CT scan of Right foot(11/16/24): FINDINGS: Lisfranc ligament: Lisfranc ligament appears intact. Soft tissues/Muniz's Neuroma: No atrophy or fatty streaking is noted in the foot musculature. No superficial soft tissue edema is noted. There is mildly prominent soft tissue in the second webspace. Syndesmotic ligaments are intact. Talofibular and calcaneofibular ligaments appear intact. Peroneal, medial, and anterior ankle tendons appear intact. Metatarsophalangeal (MTP) joint and sesamoids of the great toe: Lateral plate complex is grossly intact. No degenerative changes are evident. Lesser MTP joints & Plantar plates: Plantar plates are grossly intact. No degenerative changes are evident. Bones: Three small rounded areas of high attenuation are present in the midfoot, navicular and calcaneal, consistent with benign bone islands. No other bony abnormalities are seen. 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 I discussed with the patient the treatment plan for plantar fasciitis including the use of a night splint and stretching exercises. We also talked about the potential need for physical therapy or injections if symptoms do not improve. The patient was informed about the asymptomatic status of the neuroma and the potential interventions if it becomes symptomatic. - Recommend the use of a night splint to maintain foot position during sleep - provided patient with a night splint. - Advised continuation of stretching exercises to reduce foot pain and prevent recurrence of symptoms. - Recommend continued use of ibuprofen for its anti-inflammatory effects to manage neuroma-related pain. - Monitor symptoms and consider physical therapy or an injection if pain persists or worsens. - Neuroma management is not currently necessary as it is asymptomatic, but metatarsal pads or injections may be considered if symptoms develop. - Advised patient to consider OTC inserts/insoles. RTC in 3 weeks. 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
[2024-12-30 13:26] VITALS: BMI 34.7
== END 2024-12-30 13:33 | disposition home or self-care (01) ==
LOC: HO.HPODS 13:14
PROVIDERS: PCP Physician Assistant Medical; Visit Provider Student in an Organized Health Care Education/Training Program
DX: M77.41 Metatarsalgia, right foot (principal); M79.671 Pain in right foot; M79.672 Pain in left foot; M72.2 Plantar fascial fibromatosis; G57.61 Lesion of plantar nerve, right lower limb
CPT/HCPCS: 99214

== ENCOUNTER 2025-01-19 13:20 | Outpatient (AMB) | payer OTHER, SELFPAY ==
[2025-01-19 13:29] VITALS: BMI 34.7
--- NOTE | 2025-01-19 13:29 | A.OFFVIS_ITS ---
Vital Signs 01/19/25 13:29 Height 5 ft 10 in Weight 242 lb BMI 34.7 Intake Visit Reasons: left foot plantar fasciitis Intake Note: Gabe is a 44 year old male who presents today for a follow up of left foot plantar fasciitis. At his last visit patient was advised to continue stretching exercises to reduce foot pain, as well as to continue the intake of ibuprofen for its anti-inflammatory effects. Patient reports he is doing well, however has pain that comes and goes, with no further concerns at this time. Allergies No Known Allergies Allergy (Verified 12/30/24 13:27) HPI Comments Details: The patient is a 44-year-old male presenting for follow-up of left foot plantar fasciitis and right foot neuroma. The patient states he does not experience any pain to the right foot. The condition to the left foot has been associated with intermittent pain, primarily in the arch of the left foot, which is most noticeable in the mornings and when fatigued. The pain severity has been reported as 1-2/10. The patient has been utilizing a night splint and performing home plantar fascial exercises, which have contributed to the improvement of symptoms. He reports almost no pain currently, attributing this to the effectiveness of the night splint and exercises. There was an episode of calf cramps occurring approximately a week after starting the night splint, but no other significant leg or ankle pain has been reported.He denies any new injuries. Denies any other pedal concerns. 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 Plantar fasciitis of left foot Bilateral foot pain Metatarsalgia, right foot Hemorrhoid Hypercholesteremia Hyperlipidemia LDL goal <100 Class 1 obesity with body mass index (BMI) of 34.0 to 34.9 in adult Colon cancer screening Establishing care with new doctor, encounter for Foot swelling Family History Father Eye problem Mother Eye problem Social History Housing: House Alcohol intake: current Alcohol intake frequency: a few times a month Patient Tobacco Use Status: Never used Tobacco service: No Current occupational status: employed 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 All systems reviewed & are unremarkable except as noted in HPI and below Physical Exam Vital Signs: BMI result Body Mass Index 34.7 Extrem Other: B/L LE Focused Physical Exam: Derm: No open lesions, abrasions, or wounds noted. Skin supple and turgor WNL. No ecchymosis or discoloration noted. No edema noted. No clinical signs of infection noted. No maceration noted. Vasc: DP/PT pulses palpable. CFT < 3 secs. Temperature gradient warm to warm. Pedal hair noted. No varicosities noted. Neuro: Protective sensations grossly intact. MSK: Right - No pain on palpation to the 4th webspace/dorsal or plantar aspects of the foot along the area of the 4th and 5th metatarsals. No pain to the forefoot. Negative squeeze test. Negative luis's sign. ROM of the forefoot, hindfoot, and ankle WNL. No crepitus noted. No palpable mass noted. No fluctuance noted. Normal arch height noted. Mild Hammertoes 2-5 noted. Left - minimal pain on palpation to the lateral aspect of the plantar arch. No pain on palpation to the calcaneus plantaraly or posteriorly. Negative windlass mechanism. Minimal pain noted with dorsiflexion of the foot/ankle. No pain noted with remaining ROM. No crepitus noted. Normal arch height noted. Mild hammertoes 2-5 noted. Results Reviewed Results Reviewed: Podiatry read of CT scan of Right foot(11/16/24): Ossicles noted to the talus, calcaneus, and navicular. Small Neuroma noted to the 2nd interspace. No acute fractures or dislocations noted. CT scan of Right foot(11/16/24): FINDINGS: Lisfranc ligament: Lisfranc ligament appears intact. Soft tissues/Muniz's Neuroma: No atrophy or fatty streaking is noted in the foot musculature. No superficial soft tissue edema is noted. There is mildly prominent soft tissue in the second webspace. Syndesmotic ligaments are intact. Talofibular and calcaneofibular ligaments appear intact. Peroneal, medial, and anterior ankle tendons appear intact. Metatarsophalangeal (MTP) joint and sesamoids of the great toe: Lateral plate complex is grossly intact. No degenerative changes are evident. Lesser MTP joints & Plantar plates: Plantar plates are grossly intact. No degenerative changes are evident. Bones: Three small rounded areas of high attenuation are present in the midfoot, navicular and calcaneal, consistent with benign bone islands. No other bony abnormalities are seen. 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 I discussed with the patient the current management of plantar fasciitis, emphasizing the importance of continuing with the night splint and home plantar fascial exercises. We reviewed the potential for cortisone injections, noting that they are limited to three times a year to prevent soft tissue damage, and would be indicated if pain worsens. I advised the patient to contact us if there is any increase in pain or if additional intervention is needed. - Continue with night splint and home plantar fascial exercises to manage plantar fasciitis. - Recommended patient use metatarsal pads previously provided if pain from right foot neuroma begins. - Monitor for any increase in pain or symptoms, and consider cortisone injection or physical therapy if symptoms worsen. - Recommend continued use of ibuprofen PRN for pain. - Advised patient to consider OTC inserts/insoles. RTC PRN. 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
--- OUTSIDE RECORDS SUMMARY | 2025-01-19 16:05 | XMS_ITS | Clinical Summary ---
Author Organization [facility] Address 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 Name Role Phone Elmo Huggins MD Primary [...] FOBT 2023 SIGMOIDOSCOPY 2023 VIRTUAL COLONOSCOPY 2023 INFLUENZA VACCINE (#1) 2024 COVID-19 VACCINE (1 - 2024-2 6 season) 2024 HEPATITIS A VACCINES Aged Out No long er eligible based on patient's age to complete this topic HIB VACCINES Aged Out No longer eligi ble based on patient's age to complete this topic IPV VACCINES Aged Out No longer eligi ble [...] topic Medical Devices Not on file Insurance [facility] [place] [address] [place] [address] POS EPO [facility] POS [facility] POS EPO [facility] POS EPO Care Teams Electric Train Driver Relationship Specialty Start Date End Date Elmo Huggins MD [address] [place] [id number] PCP - General Internal Medicine 07/31/24 Additional Source Comments The information contained in this document represents components of the legal health record. It is not the complete legal health record.[facility]
== END 2025-01-19 13:47 | disposition home or self-care (01) ==
LOC: HO.HPODS 13:20
PROVIDERS: PCP Physician Assistant Medical; Visit Provider Student in an Organized Health Care Education/Training Program
DX: M77.41 Metatarsalgia, right foot (principal); M79.671 Pain in right foot; M79.672 Pain in left foot; M72.2 Plantar fascial fibromatosis; G57.61 Lesion of plantar nerve, right lower limb
CPT/HCPCS: 99213

== ENCOUNTER 2025-02-16 14:51 | Outpatient (AMB) | payer OTHER, SELFPAY ==
[2025-02-16 14:54] VITALS: BP 128/72; PULSE 68; RESP 14; TEMP 36.4; O2SAT 97; BMI 33.8
--- NOTE | 2025-02-16 14:54 | A.OFFPC_ITS ---
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 He denies any specific concerns and has a normal blood pressure reading. The patient reports a benign, non-painful fatty tissue mass on his arm which has been present for some time. Regarding his previous complaint of foot swelling, a course of prednisone provided some relief. A subsequent visit to a engraver optical frames and a CT scan confirmed a Muniz's neuroma and plantar fasciitis in his left foot. He was shown exercises and given a splint for management, and his foot symptoms are currently intermittent and not present today. Review of blood work from six months ago showed a low vitamin D level, a slightly elevated white blood cell count, and a fasting glucose of 113 mg/dL with a hemoglobin A1c of 5.1%. His kidney function, electrolytes, and liver enzymes were normal. One inflammatory marker, CRP, was slightly elevated at 0.68, and the non-fasting lipid panel results were noted as potentially inaccurate. His PSA and thyroid levels were normal. A Cologuard test was negative, and he has a future colonoscopy pending. The patient is taking vitamin D, flaxseed oil, a multivitamin, and Crestor for high cholesterol. He recently received an automatic refill for Crestor and has at least a month's supply remaining. He does not report muscle aches, a potential side effect of Crestor. He denies any recent falls, hospitalizations, STDs, black or bloody stools, or unintentional weight loss. Social History - Employment: The patient works. - Hobbies and Interests: He is intereste d in 3D printing, making items for personal use and hobbies. - Sexual Activity: Patient was instructe d to avoid sexual intercourse before testosterone testing. - Exercise: The patient reports being pr jonah sedentary and was instructed to avoid strenuous activity before lab work. - Functional Status: He is able to perfo rm all activities of daily living. [facility] Medical History (Updated 02/16/25 @ 15:46 by Elizabet Núñez PA-C) Leg swelling Impacted cerumen, left ear Vitamin D deficiency Plantar fasciitis Muniz's neuroma of left foot Lipoma of right upper extremity Healthcare maintenance Sleep apnea Negative colorectal cancer screening using DNA-based stool test (~11/17/24) Neuroma of second interspace of right foot Plantar fasciitis of left foot Bilateral foot pain Metatarsalgia, right foot Hemorrhoid Hypercholesteremia Hyperlipidemia LDL goal <100 Class 1 obesity with body mass index (BMI) of 34.0 to 34.9 in adult Colon cancer screening Establishing care with new doctor, encounter for Foot swelling Family History Father Eye problem Mother Eye problem Social History Housing: House Alcohol intake: current Alcohol intake frequency: a few times a month Patient Tobacco Use Status: Never used Tobacco service: No Current occupational status: employed 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 1. Little interest or pleasure in doing things: not at all 2. Feeling down, depressed, or hopeless: not at all 3. Trouble falling or staying asleep, or sleeping too much: not at all 4. Feeling tired or having little energy: not at all 5. Poor appetite or overeating: not at all 6. Feeling bad about yourself - or that you are a failure or have let yourself or your family down: not at all 7. Trouble concentrating on things, such as reading the newspaper or watching television: not at all 8. Moving or speaking so slowly that other people could have noticed. Or the opposite - being so fidgety or restless that you have been moving around a lot more than usual: not at all 9. Thoughts that you would be better off or of hurting yourself in some way: not at all Total score: 0 Depression Screening Interpretation: Negative Depression Screening Done: Yes 17995 - PHQ-9 Billing: Yes Source: Developed by Drs. Inocente Gale, Glenis Kelly, Cole Bearden and colleagues, with an educational tj from [employer]. Thrive Questionnaire Date Thrive assessed: 08/11/24 I am a: Patient What is your living situation today?: I have a steady place to live Within the past 12 months, did the food you bought not last and you didn't have the money to get more?: Never true Within the past 12 months, did you worry whether your food would run out before you got money to buy more?: Never true Do you have trouble paying for medicines?: No Do you have trouble getting transportation to medical appointments?: No Do you have trouble paying your heating and electricity bill?: No Do you have trouble taking care of your child, family member or friend?: No Do you have trouble with day-to-day activities such as bathing, preparing meals, shopping, managing finances, etc.?: No Are you currently unemployed and looking for a job?: No Are you interested in more education?: No Please select the resources that you would like help with: None THRIVE Score: 0 AUDIT C Alcohol Use Questionnaire (AUDIT-C) 1. How often do you have a drink containing alcohol?: 2-4 times a month 2. How many drinks containing alcohol do you have on a typical day when you are drinking?: 1 or 2 3. How often do you have six or more drinks on one occasion?: Never Total Score: 2 Score Reviewed/Action Taken: No JEWEL-7 AMB Questionnaire JEWEL-7 Date JEWEL - 7 assessed: 08/11/24 Feeling nervous, anxious, or on edge: 0 = Not at all Not being able to stop or control worryin = Not at all Worrying too much about different things: 0 = Not at all Trouble relaxin = Not at all Being so restless that it is hard to sit still: 0 = Not at all Becoming easily annoyed or irritable: 0 = Not at all Feeling afraid as if something awful might happen: 0 = Not at all Total JEWEL-7 score (0-4 normal; 5-9 mild; 10-14 moderate; 15-21 severe): 0 Source: Developed by Drs. Inocente Gale, Glenis Kelly, Cole Bearden and colleagues, with an educational tj from [employer]. JEWEL-7 Assessment Billing JEWEL-7 Assessment Tool: JEWEL-7 Assessment 49170 Review of Systems Narrative Review of Systems - General: Reports feeling well. - Skin: Reports a non-bothersome, non-painful mass on his arm. - Cardiovascular: Denies chest pain. Reports occasional leg swelling with sock indentations, but denies shortness of breath associated with it. - Respiratory: Denies shortness of breath. Reports snoring and is interested in sleep apnea testing. - Gastrointestinal: Denies black or bloody stools. - Musculoskeletal: Reports intermittent pain in the elbow joint with prolonged overhead arm motion. Denies daily joint pains. Reports his foot feels fine today, but the symptoms come and go. Denies pain in the belly or over the kidneys. - Neurological/Constitutional: Denies fatigue. Denies unintentional weight loss. - Genitourinary: Denies concerns about sexually transmitted diseases. - All Systems: Denies recent falls or hospitalizations. - HEENT: Reports occasional sensation of being unable to hear from right ear, which resolves with a yawn. Denies pain in the neck when palpated. Const All systems reviewed & are unremarkable except as noted in HPI and below Physical exam (Primary Care) Vital Signs: Last Vital Signs Temp 97.6 F 02/16/25 14:54 Pulse 68 02/16/25 14:54 Resp 14 02/16/25 14:54 BP 128/72 02/16/25 14:54 Pulse Ox 97 02/16/25 14:54 Oxygen Delivery Method Room Air 02/16/25 14:54 Care Plan Goal for BP management: <140/90 at Goal BMI result Body Mass Index 33.8 BMI Assessment/Plan discussion: High BMI High, discussed plan: lifestyle, weight reduction, dietary, physical activity, alcohol moderation and other Tobacco/Smoking Status: Tobacco use Status Tobacco use date assessed 08/11/24 02/16/25 15:02 Patient Tobacco Use Status Never used Tobacco 02/16/25 15:02 PHQ-9: PHQ-9 Score PHQ-9: Total score 0 02/16/25 15:02 Depression Screening Interpretation: Negative Thrive Assessment: Date of Thrive Assessment Date Thrive assessed 08/11/24 02/16/25 15:02 Narrative Physical Exam Appearance: Alert. Oriented X3. No acute distress. Head: Normal external exam. Normocephalic. Atraumatic. Eyes: Pupils are equal, round, and reactive to light. Extraocular movements intact. Conjunctiva and sclera normal. Eyelids normal. Ears: External auditory canal normal. Tympanic membranes normal. Cerumen impaction to left ear canal. Throat: Pharynx normal. Uvula midline. Moist mucous membranes. Neck: Normal inspection. Neck supple. Full range of motion. No adenopathy. Thyroid Normal. No meningeal signs. No neck mass noted. Cardiovascular: Normal heart rate and rhythm. Heart sound normal. No murmurs noted. Pulses normal throughout. Heart sounds loud but strong. Respiratory: No respiratory distress. Painless inspiration. Breath sounds normal. No wheezes/rales/rhonchi noted. Chest nontender. No accessory muscle usage noted or decreased air movement noted. Abdomen: Soft and nontender. Bowel sounds normal in all 4 quadrants. No d istention noted. No organomegaly noted. No visible injury noted. Back: No costovertebral angle tenderness. Full range of motion noted. Skin: Skin warm and dry. Normal skin color. Normal skin turgor. No rashes/lesions/lacerations noted. Lipoma noted on the arm. Extremities: No lower extremity edema. Extremities exhibit normal range of motion. Extremities nontender. Occasional indentation noted when socks are removed. Neuro: Oriented X 3. No motor deficit. No sensory deficit. Reflexes normal. Office Procedures Cerumen Removal From which ear canal was the cerumen removed: left Removal: irrigation Notes: patient tolerated procedure well, no complications and ear canal clear 04198-Aow Irrigation/Lavage Results Reviewed Results Reviewed: Results - Results from 6 months ago: - CBC: White blood cell count was slightly elevated. - CMP: Sodium, potassium, and kidneys were normal. Fasting glucose was 113. - Hemoglobin A1c: 5.1%. - Uric Acid: Negative. - Hepatic Function Panel: Liver enzymes were normal. - Magnesium: Normal. - CRP: Slightly elevated at 0.68. - Lipid Panel: Noted as non-fasting and will need to be repeated. - Vitamin D: Low. - PSA: Normal. - TSH: Normal. - CT Scan (foot): Showed a Muniz's neuroma. - Cologuard: Negative for colon cancer. Coding Level of Care Code Est Pt Level 4 (71246) Add On Problem Visit Only Diagnoses Healthcare maintenance Z00.00 Lipoma of right upper extremity D17.21 Muniz's neuroma of left foot G57.62 Plantar fasciitis M72.2 Vitamin D deficiency E55.9 Hypercholesteremia E78.00 Sleep apnea G47.30 Impacted cerumen, left ear H61.22 Leg swelling M79.89 CPT Codes Office Procedure - CPT: 46989-Ail Irrigation/Lavage ([id number]) Additional Codes JEWEL-7 Assessment Billing - JEWEL-7 Assessment Tool: JEWEL-7 Assessment 98651 ([id number]) PHQ-9 - 86030 - PHQ-9 Billing: Yes ([id number]) Assessment & Plan Assessment & Plan (1) Healthcare maintenance: Code(s): Z00.00 - Encounter for general adult medical examination without abnormal findings Category: Medical Plan: A follow-up visit for an annual physical is scheduled in six months, around August. Fasting lab work is ordered to be completed about a week or two prior to the physical. The labs will include a CBC, CMP, HbA1c, fasting lipid panel, magnesium, random urinalysis, vitamin B12, folate, vitamin D, PSA, thyroid panel, two inflammatory markers (CRP and ESR), and testosterone. The patient's Cologuard was negative, and he has a pending colonoscopy. (2) Lipoma of right upper extremity: Code(s): D17.21 - Benign lipomatous neoplasm of skin and subcutaneous tissue of right arm Category: Medical Plan: The patient has a mass on his arm consistent with a benign lipoma. As it is asymptomatic and not threatening his health, the plan is to leave it in place and monitor. Surgical removal is an option if it becomes bothersome. (3) Muniz's neuroma of left foot: Code(s): G57.62 - Lesion of plantar nerve, left lower limb Category: Medical Plan: The patient was previously diagnosed with a Muniz's neuroma and plantar fasciitis in the left foot via CT scan after presenting with foot swelling. He is managing this with exercises and a splint provided by a engraver optical frames, and his symptoms are intermittent. No new interventions are planned at this time. (4) Plantar fasciitis: Code(s): M72.2 - Plantar fascial fibromatosis Category: Medical Plan: The patient was previously diagnosed with a Muniz's neuroma and plantar fasciitis in the left foot via CT scan after presenting with foot swelling. He is managing this with exercises and a splint provided by a engraver optical frames, and his symptoms are intermittent. No new interventions are planned at this time. (5) Vitamin D deficiency: Code(s): E55.9 - Vitamin D deficiency, unspecified Category: Medical Plan: The patient was found to have low vitamin D on previous labs. He is currently taking a vitamin D supplement. A repeat vitamin D level will be checked with his upcoming labs. (6) Hypercholesteremia: Code(s): E78.00 - Pure hypercholesterolemia, unspecified Category: Medical Plan: The patient is on Crestor for high cholesterol and will continue taking it. It was recommended to take the medication at bedtime to minimize potential muscle aches. A fasting lipid panel will be checked at his next lab draw to accurately assess his cholesterol levels. Information on naturally lowering cholesterol will be provided. (7) Sleep apnea: Code(s): G47.30 - Sleep apnea, unspecified Category: Medical Plan: The patient reports snoring and is interested in being tested for sleep apnea. An order for an at-home sleep study will be placed. If the home study is abnormal, an in-hospital study will be considered. (8) Impacted cerumen, left ear: Code(s): H61.22 - Impacted cerumen, left ear Category: Medical Plan: The patient has cerumen impaction in one ear. Home care with hydrogen peroxide drops followed by warm water irrigation in the shower was recommended. In-office drainage was offered and performed successfully. Patient tolerated procedure well. No complications. Tympanic membrane intact after cerumen impaction removal. (9) Leg swelling: Code(s): M79.89 - Other specified soft tissue disorders Category: Medical Plan: The patient reports occasional leg swelling, noted by sock indentations, which could be related to his sedentary work. Given the loud heart sounds on exam, this will be monitored. If swelling persists or worsens, or if blood pressure be comes abnormal, a cardiac ultrasound may be considered. Currently, no further workup is needed. Plan Plan Patient was informed and verbally consented to the use of an ambient scribe for clinic note documentation during this visit. 1. Health Maintenance A follow-up visit for an annual physical is scheduled in six months, around August. Fasting lab work is ordered to be completed about a week or two prior to the physical. The labs will include a CBC, CMP, HbA1c, fasting lipid panel, magnesium, random urinalysis, vitamin B12, folate, vitamin D, PSA, thyroid panel, two inflammatory markers (CRP and ESR), and testosterone. The patient's Cologuard was negative, and he has a pending colonoscopy. 2. Lipoma Of Arm The patient has a mass on his arm consistent with a benign lipoma. As it is asymptomatic and not threatening his health, the plan is to leave it in place and monitor. Surgical removal is an option if it becomes bothersome. 3. Muniz's Neuroma And Plantar Fasciitis The patient was previously diagnosed with a Muniz's neuroma and plantar fasciitis in the left foot via CT scan after presenting with foot swelling. He is managing this with exercises and a splint provided by a engraver optical frames, and his symptoms are intermittent. No new interventions are planned at this time. 4. Vitamin D Deficiency The patient was found to have low vitamin D on previous labs. He is currently taking a vitamin D supplement. A repeat vitamin D level will be checked with his upcoming labs. 5. Hypercholesterolemia The patient is on Crestor for high cholesterol and will continue taking it. It was recommended to take the medication at bedtime to minimize potential muscle aches. A fasting lipid panel will be checked at his next lab draw to accurately assess his cholesterol levels. Information on naturally lowering cholesterol will be provided. 6. Snoring/Potential Sleep Apnea The patient reports snoring and is interested in being tested for sleep apnea. An order for an at-home sleep study will be placed. If the home study is abnormal, an in-hospital study will be considered. 7. Cerumen Impaction The patient has cerumen impaction in one ear. Home care with hydrogen peroxide drops followed by warm water irrigation in the shower was recommended. In-office drainage was offered and performed successfully. Patient tolerated procedure well. No complications. Tympanic membrane intact after cerumen impaction removal. 8. Leg Swelling The patient reports occasional leg swelling, noted by sock indentations, which could be related to his sedentary work. Given the loud heart sounds on exam, this will be monitored. If swelling persists or worsens, or if blood pressure becomes abnormal, a cardiac ultrasound may be considered. Currently, no further workup is needed. Discussion Notes I discussed with the patient his plan for a follow-up visit in six months for a comprehensive physical. I ordered a full panel of fasting blood work to be done prior to this visit, which will include rechecking his lipids, vitamin D, and inflammatory markers. I explained that we would add an ESR to the CRP to see if both inflammatory markers are elevated. I also added a testosterone level at his request, and provided specific instructions for the draw: fasting, between 7-10 AM, and with no strenuous exercise or sexual intercourse beforehand. We reviewed his current medications, and I advised him to continue the Crestor, suggesting he take it at bedtime to reduce the risk of muscle aches. We discussed his snoring, and I placed a referral for an at-home sleep study, explaining that he will be contacted to set it up. Regarding the asymptomatic lipoma on his arm, I reassured him that it is benign and can be left alone unless it becomes bothersome. For the cerumen in his ear, I recommended home treatment with peroxide and offered to have it drained in the office today. I also discussed his occasional leg swelling and the loud-sounding heart, and advised that we will monitor this, with a low threshold for an echocardiogram if symptoms progress. I let him know I would provide information on natural ways to lower cholesterol. Orders: Orders Comprehensive [place]. Panel Fast Today Z00.00 - Encounter for general adult medical examination without abnormal findings Lipid Panel Today Z00.00 - Encounter for general adult medical examination without abnormal findings Vitamin B12 and Folate Today Z00.00 - Encounter for general adult medical examination without abnormal findings Vitamin D 25-OH Total Today Z00.00 - Encounter for general adult medical exam ination without abnormal findings PSA,Total (Free>4and<10) Today Z00.00 - Encounter for general adult medical examination without abnormal findings Hemoglobin A1c Today Z00.00 - Encounter for general adult medical examination without abnormal findings Dihydrotestosterone Today Z00.00 - Encounter for general adult medical examination without abnormal findings RT home sleep study Today G47.30 - Sleep apnea, unspecified C Reactive Protein Today Z00.00 - Encounter for general adult medical examination without abnormal findings Complete Blood Count Auto Diff Today Z00.00 - Encounter for general adult medical examination without abnormal findings Erythrocyte Sedimentation Rate Today Z00.00 - Encounter for general adult medical examination without abnormal findings Magnesium Today Z00.00 - Encounter for general adult medical examination without abnormal findings UA CC w/rflx Micro + Cult Today Z00.00 - Encounter for general adult medical examination without abnormal findings TSH reflex Free T4 Today Z00.00 - Encounter for general adult medical examination without abnormal findings Microalbumin, Random (w Creat) Today E11.9 - Type 2 diabetes mellitus without complications DHEA Sulfate Today Z00.00 - Encounter for general adult medical examination without abnormal findings Testosterone, Free/Total Today Z00.00 - Encounter for general adult medical examination without abnormal findings Patient Instructions: Patient Instructions - Continue taking all your current medications, including Vitamin D, flaxseed oil, multivitamin, and Crestor. - Consider taking your Crestor at bedtime to help prevent muscle aches. - Go for your follow-up blood work in early August, about 1-2 weeks before your next physical exam. - For the blood tests, you need to fast for 10-12 hours beforehand (water and black coffee are okay). The lab must be done between 7 AM and 10 AM. - Avoid sexual intercourse or strenuous exercise before your blood test, as it can affect the testosterone level. - You will receive a call to set up an at-home sleep study to check for sleep apnea. - For the wax in your ear, you can put hydrogen peroxide in your ear for five minutes on each side, then rinse with warm water in the shower. Do not use Q- tips. - Monitor for any increase in leg swelling. If it gets worse or you develop shortness of breath, please contact the office. - Request medication refills when you need them. - Return for your annual physical exam in about six months (around August).
--- OUTSIDE RECORDS SUMMARY | 2025-02-16 23:23 | XMS_ITS | Clinical Summary ---
Author Organization [facility] Address [address] [place] [address] Phone Care Team Providers Care Genetic Engineer Name Role Phone Elmo Huggins MD Primary [...] topic Medical Devices Not on file Insurance [facility] E[facility] EPO [facility] EPO [facility] [employer] EPO Care Teams Genetic Engineer Relationship Specialty Start Date End Date Elmo Huggins MD [address] [place] [id number] PCP - General Internal Medicine 07/31/24 Additional Source Comments The information contained in this document represents components of the legal health record. It is not the complete legal health record.[facility]
== END 2025-02-16 15:23 | disposition home or self-care (01) ==
LOC: HO.HMCSH 14:51
PROVIDERS: PCP Physician Assistant Medical; Visit Provider Physician Assistant Medical
DX: D17.21 Benign lipomatous neoplasm of skin and subcutaneous tissue of right arm (principal); G57.62 Lesion of plantar nerve, left lower limb; M72.2 Plantar fascial fibromatosis; E55.9 Vitamin D deficiency, unspecified; E78.00 Pure hypercholesterolemia, unspecified; G47.30 Sleep apnea, unspecified; H61.22 Impacted cerumen, left ear; M79.89 Other specified soft tissue disorders

== ENCOUNTER → 2025-02-16 14:51 | Outpatient (BNVA) | payer OTHER, SELFPAY | PROVIDERS: PCP Physician Assistant Medical; Visit Provider Physician Assistant Medical | DX: H61.22 Impacted cerumen, left ear (principal); Z13.31 Encounter for screening for depression | CPT/HCPCS: 69209; 96127 ==